=== PATIENT | male | born 1970 | race Caucasian/White ===

== ENCOUNTER 2022-03-14 12:45 | Emergency (ER) | payer SELFPAY ==
[~2022-03-14 12:45] MED LIST: IBUPROFEN600 MG PO; KEPPRA500 MG PO; NORCO 5-325 TA1 EACH PO
[2022-03-14 13:33] LABS: HEMOGLOBIN 15.9 gm/dl (14.0-17.5); RED BLOOD COUNT 5.33 M/UL (4.20-5.50); WHITE BLOOD COUNT 10.7 K/UL (4.5-11.0)
[2022-03-14 13:53] LABS: BUN/CREATININE RATIO 11 (0-10)
[2022-03-14] MEDS ORDERED: KEPPRA1000 MG PO (15:23)
== END 2022-03-14 15:45 | disposition home or self-care (01) ==
LOC: ER1 12:45
PROVIDERS: Physician Assistant
DX: G40.909 Epilepsy, unspecified, not intractable, without status epilepticus (principal); F15.10 Other stimulant abuse, uncomplicated; Z88.8 Allergy status to other drugs, medicaments and biological substances
CPT/HCPCS: 80048; 80307; 85025; 93005; 96374; 99284; J1953